=== PATIENT | male | born 1960 | race Caucasian/White ===

== ENCOUNTER 2024-07-15 10:27 | Observation (INO) | payer MEDICARE, SELFPAY ==
[2024-07-15 13:49] VITALS: BMI 22.9
[2024-07-15] MEDS ORDERED: Communication Order-Pharmacy FS SCH (17:00)
[2024-07-15] MEDS ORDERED: Acetaminophen 325 MG TAB PO PRN (17:00)
[2024-07-15] MEDS ORDERED: traMADol HCl 50 MG TAB PO PRN (17:00)
[2024-07-15] MEDS ORDERED: HYDROcodone/Acetaminophen 10/325 mg Tablet PO PRN (17:00)
[2024-07-15] MEDS ORDERED: Morphine 2 MG/ML VIAL SLOW IVP PRN (17:00)
[2024-07-15] MEDS ORDERED: TETANUS, DIPHTHERIA TOX,ADULT (TDVAX) 0.5 ML VIAL IM ONE (17:00)
[2024-07-15] MEDS ORDERED: Morphine 4 MG/ML VIAL SLOW IVP PRN (17:00)
[2024-07-15] MEDS: FLU (Fluad Triv) TS24-25 (65UP)/MF59C/PF 45 MCG/0.5 ML Syringe IM ONE (17:06)
[2024-07-15] MEDS: Sodium Chloride 0.9% 1,000 ML IV SCH (17:07)
[2024-07-15] MEDS: Acetaminophen/Codeine 30-300mg Tablet PO SCH (17:07)
[2024-07-15] MEDS: Cyclobenzaprine 10 MG TAB PO SCH (17:08)
[2024-07-15 17:10] LABS: #Basophils 0.07 10x3/uL (0.0-0.2); %Eosinophils 2.2 % (0.0-10.0); %Monocytes 7.2 % (0.0-10.0); %Neutrophils 77.9 % (42.0-75.0); Hematocrit 40.8 % (42.0-52.0); Hemoglobin 14.4 g/dL (14.0-18.0); Mean Corpuscular HGB CONC 35.3 g/dL (32.0-36.0); Mean Corpuscular Volume 87.7 fL (78.0-98.0); Mean Platelet Volume 9.7 fL (7.4-10.4); Platelet Count 287 10x3/uL (130-400); RBC Distribution Width 12.2 % (11.5-14.5); Red Blood Cell (RBC) Count 4.65 mill/uL (4.70-6.10)
[2024-07-15 17:27] LABS: CRP,High Sensitivity (Inhouse) 2.07 mg/dL (< or = 0.5)
[2024-07-15 17:28] LABS: ALT (SGPT) 25 U/L (8-55); AST (SGOT) 16 U/L (5-34); Albumin 3.8 g/dL (3.4-4.8); Alkaline Phosphatase 69 U/L (40-110); Anion Gap 14 mmol/L (10-20); BUN (Urea Nitrogen) 21 mg/dL (8.4-25.7); Bilirubin, Total 0.9 mg/dL (0.2-1.2); Calc. Creatinine Clearance 108 mL/min (70-130); Calcium 8.8 mg/dL (7.8-10.44); Carbon Dioxide 22 mmol/L (23-31); Chloride 108 mmol/L (98-107); Estimated GFR 99; Globulin 3.3 g/dL (2.4-3.5); Glucose 103 mg/dL (80-115); Potassium 3.6 mmol/L (3.5-5.1); Protein, Total 7.1 g/dL (5.8-8.1); Sodium 140 mmol/L (136-145)
[2024-07-15] MEDS: methylPREDNISolone Sod Succ 40 MG VIAL IVP SCH (17:44)
[2024-07-15] MEDS: Aspirin 81 mg Enteric Coated Tablet PO SCH (21:04)
[2024-07-16 11:28] VITALS: BMI 22.9
[2024-07-16] MEDS: TETANUS, DIPHTHERIA TOX,ADULT (TDVAX) 0.5 ML VIAL IM ONE (13:37)
[2024-07-16 21:47] VITALS: BP 158/96; TEMP 97.5
== END 2024-07-17 11:23 | disposition home or self-care (01) ==
LOC: SURG B 12:52 → INTOOBSV 12:52
PROVIDERS: ADMIT Orthopaedic Surgery; ATTEND Orthopaedic Surgery
DX: J39.0 Retropharyngeal and parapharyngeal abscess (principal); R13.10 Dysphagia, unspecified; R53.1 Weakness; M50.31 Other cervical disc degeneration, high cervical region
CPT/HCPCS: 71046; 72040; 72125; 80053; 85025; 86141; 90714; J2919 ×2; J7030 ×2; 36415; 96374; 96376; G0378